=== PATIENT | female | born 1970 | race Caucasian/White ===

== ENCOUNTER 2016-07-24 15:45 | Emergency (ER) | payer MEDICAID ==
--- NOTE | 2016-07-24 15:40 | EDPHY ---
H & P Constitutional: Initial Vital Signs Temperature (C) 36.7 C 07/24/16 15:57 Heart Rate 108 H 07/24/16 15:57 Respiratory Rate 20 07/24/16 15:57 Blood Pressure 141/104 H 07/24/16 15:57 O2 Sat (%) 98 07/24/16 15:57 O2 Delivery Mode Room Air O2 (L/minute) 2 Allergies/Adverse Reactions: Penicillins Allergy (Verified 06/20/13 18:12) promethazine HCl [From Phenergan] Allergy (Verified 06/20/13 18:12) Home Medications: Medication Instructions Recorded Protonix 07/24/16 traMADol 07/24/16 Medical Decision Making ED Course/Re-evaluation: CHIEF COMPLAINT: Abdominal pain, vomiting HISTORY OF PRESENT ILLNESS: The patient is a 46 y/o female, with a history of alcoholic pancreatitis, arriving via EMS from the [facility] complaining of vomiting and diffuse abdominal pain, worse in the epigastrium, worsening over the last week. She reports she has been drinking heavily every day for the last several months, but began intentionally weaning herself down over the last week. Her last drink was a beer yesterday. She has been attempting to find an inpatient detox facility and ultimately drove from [place] today to the [facility] for detox. Upon arrival there, she was shaking, vomiting, and complaining of diffuse abdominal pain. She was not yet admitted to their facility and the [facility] called EMS so she could be cleared at the ED first. EMS administered 200mcg IV Fentanyl and 4mg IV Zofran en route for symptoms. The patient wishes to return to the [facility] after evaluation. REVIEW OF SYSTEMS: A 10 point review of systems was performed and is negative with the exception of the elements mentioned in the history of present illness. PHYSICAL EXAM: HR, BP, O2 Sat, RR. Temp noted General Appearance: Alert, well hydrated, appropriate, and non-toxic appearing. Head: Atraumatic without scalp tenderness or obvious injury Eyes: Pupils equal, round, reactive to light and accommodation, EOMI, no trauma , no injection. Ears: Clear bilaterally, no perforation, normal landmarks Nose: Atraumatic, no rhinorrhea, clear. Throat: There is no erythema or exudates, no lesions, normal tonsils, mucus membranes moist. Neck: Supple, 2+ carotid upstroke, nontender, no lymphadenopathy. Respiratory: No retractions, no distress, no wheezes, and no accessory muscle use. Lungs are clear to auscultation bilaterally. Cardiovascular: Tachycardic regular rate and rhythm, no murmurs, rubs, or gallops. Bilateral carotid, radial, dorsalis pedis, and posterior tibial pulses intact. Good capillary refill all extremities. Gastrointestinal: Abdomen is soft, mild epigastric tenderness, non-distended, no masses, no rebound, no guarding, no peritoneal signs. Musculoskeletal: Normal active ROM of all extremities, atraumatic. Neurological: Alert, appropriate, and interactive. The patient has normal DTRs and non-focal cranial nerves, motor, sensory, and cerebellar exam. Skin: No rashes, good turgor, no nodules on palpation. Past medical history: Pancreatitis, alcoholism Past surgical history: noncontributory Family history: noncontributory Social history: Lives in [place], came to [place] for detox, alcohol abuse and binging behavior DIFFERENTIAL DIAGNOSIS: The differential diagnosis for the patient's abdominal pain and vomiting included but was not limited to alcohol withdrawal, pancreatitis, gastritis, ovarian cyst, pelvic inflammatory disease, ovarian torsion, urinary tract infection, ectopic , cholecystitis, and appendicitis. MEDICAL DECISION MAKING: This is a 46 y/o female with a history of alcohol abuse who is attempting to detox off alcohol for the last week. She presents from the [facility] prior to being admitted to their facility with epigastric abdominal tenderness, shaking, tachycardia, and vomiting. She scores around 12 on the CWA scale. Her symptoms are consistent with alcohol withdrawal. Plan to treat with PRN Ativan and fluids , draw basic labs, then discharge back to the [facility] with Librium at her request. 1620: Hgb 20.4. Patient is likely dehydrated from ongoing vomiting. 2L IV NS administered. Normal lipase. 1637: Patient is medically cleared at this time. She received 1mg IV Ativan, 4mg IV Zofran, 20mg IV Pepcid, and 2L IV NS with improvement in symptoms. She feels improved and is no longer shaking. Plan for discharge to the [facility] with Librium prepack. Patient agrees with the plan. - Data Points Laboratory Results: Laboratory Results 07/24/16 15:50 07/24/16 15:50 07/24/16 15:50 WBC 8.06 10^3/uL (3.80-9.50) RBC 5.71 H 10^6/uL (4.18-5.33) Hgb 20.4 H* g/dL (12.6-16.3) Hct 57.7 H % (38.0-47.0) MCV 101.1 H fL (81.5-99.8) MCH 35.7 H pg (27.9-34.1) MCHC 35.4 g/dL (32.4-36.7) RDW 15.1 % (11.5-15.2) Plt Count 297 10^3/uL (150-400) MPV 9.6 fL (8.7-11.7) Neut % (Auto) 82.0 H % (39.3-74.2) Lymph % (Auto) 8.9 L % (15.0-45.0) [place] % (Auto) 8.2 % (4.5-13.0) Eos % (Auto) 0.0 L % (0.6-7.6) Baso % (Auto) 0.5 % (0.3-1.7) Nucleat RBC Rel Count 0.0 % (0.0-0.2) Absolute Neuts (auto) 6.61 H 10^3/uL (1.70-6.50) Absolute Lymphs (auto) 0.72 L 10^3/uL (1.00-3.00) Absolute Monos (auto) 0.66 10^3/uL (0.30-0.80) Absolute Eos (auto) 0.00 L 10^3/uL (0.03-0.40) Absolute Basos (auto) 0.04 10^3/uL (0.02-0.10) Absolute Nucleated RBC 0.00 10^3/uL (0-0.01) Immature Gran % 0.4 % (0.0-1.1) Immature Gran # 0.03 10^3/uL (0.00-0.10) Sodium 143 mEq/L (134-144) Potassium 4.4 mEq/L (3.5-5.2) Chloride 99 mEq/L (97-110) Carbon Dioxide 23 mEq/l (22-31) Anion Gap 21 H mEq/L (8-16) BUN 5 L mg/dL (7-23) Creatinine 0.6 mg/dL (0.6-1.0) Estimated GFR > 60 Glucose 130 H mg/dL (70-100) Calcium 10.3 mg/dL (8.5-10.4) Total Bilirubin 2.5 H mg/dL (0.1-1.4) Conjugated Bilirubin 0.8 H mg/dL (0.0-0.5) Unconjugated Bilirubin 1.7 H mg/dL (0.0-1.1) AST 92 H IU/L (14-46) ALT 61 H IU/L (9-52) Alkaline Phosphatase 131 H IU/L (38-126) Total Protein 8.1 g/dL (6.3-8.2) Albumin 4.4 g/dL (3.5-5.0) Lipase 128.0 IU/L (23-300) Beta HCG, Qual NEGATIVE Medications Given: Discontinued Medications Chlordiazepoxide (Librium 25 Mg Prepack#6) 1 btl TAKEHOME EDNOW ONE Stop: 07/24/16 16:38 Last Admin: 07/24/16 16:45 Dose: 1 btl Sodium Chloride (Ns) 1,000 mls @ 0 mls/hr IV ONCE ONE PRN Reason: Wide Open Stop: 07/24/16 15:51 Last Admin: 07/24/16 16:15 Dose: 1,000 mls Sodium Chloride (Ns) 1,000 mls @ 0 mls/hr IV ONCE ONE PRN Reason: Wide Open Stop: 07/24/16 15:51 Last Admin: 07/24/16 16:15 Dose: 1,000 mls Famotidine/Sodium Chloride (Pepcid 20 Mg (Premix)) 50 mls @ 200 mls/hr IV EDNOW ONE Stop: 07/24/16 16:04 Last Admin: 07/24/16 16:15 Dose: 50 mls Lorazepam (Ativan Injection) 1 mg IVP EDNOW ONE Stop: 07/24/16 15:53 Last Admin: 07/24/16 16:00 Dose: 1 mg Departure - Departure Disposition: Home, Routine, Self-Care Clinical Impression: Alcohol withdrawal Condition: Good Instructions: Alcohol Withdrawal (ED) Additional Instructions: Go directly to the [facility]. Use Librium as prescribed for alcohol withdrawal symptoms. Referrals: Patient,NotPresent [Primary Care Provider] - As per Instructions [facility] 24 Hours [Outside] - As per Instructions Report Scribed for: Mik Natarajan Report Scribed by: Maribel Manjarrez Date of Report: 07/24/16 Time of Report: 16:00
[2016-07-24] MEDS ORDERED: LORazepam 2 MG/ML INJ ONE (15:49)
[2016-07-24] MEDS ORDERED: NS 1,000 ML IV ONE ×2 (15:50)
[2016-07-24] MEDS ORDERED: FAMOTIDINE 20 MG/NACL 50 ML IV ONE (15:50)
[2016-07-24] MEDS ORDERED: LORazepam 2 MG/ML INJ IVP ONE (15:52)
[2016-07-24 15:59] VITALS: TEMP 98.1
[2016-07-24 16:02] VITALS: O2SAT 100
[2016-07-24 16:06] LABS: % IMMATURE GRANULYOCYTES 0.4 % (0.0-1.1); ABSOLUTE IMMATURE GRANULOCYTES 0.03 10^3/uL (0.00-0.10); ADD DIFF? NO; ADD MORPH? NO; ADD SCAN? NO; ATYPICAL LYMPHOCYTE FLAG 0 (0-99); FRAGMENT RBC FLAG 0 (0-99); HEMATOCRIT 57.7 % (38.0-47.0); LEFT SHIFT FLG 0 (0-99); LIPEMIA HEMOLYSIS FLAG 90 (0-99); MEAN CELL HEMOGLOBIN 35.7 pg (27.9-34.1); MEAN CELL HEMOGLOBIN CONCENTR. 35.4 g/dL (32.4-36.7); MEAN CELL VOLUME 101.1 fL (81.5-99.8); MEAN PLATELET VOLUME 9.6 fL (8.7-11.7); PLATELET CLUMPS FLAG 30 (0-99); PLATELET COUNT 297 10^3/uL (150-400); RED BLOOD CELL COUNT 5.71 10^6/uL (4.18-5.33); RED CELL DISTRIBUTION WIDTH 15.1 % (11.5-15.2)
[2016-07-24 16:14] LABS: HEMOGLOBIN 20.4 g/dL (12.6-16.3)
[2016-07-24 16:30] LABS: ALANINE AMINOTRANSFERASE 61 IU/L (9-52); ALBUMIN 4.4 g/dL (3.5-5.0); ALKALINE PHOSPHATASE 131 IU/L (38-126); ANION GAP 21 mEq/L (8-16); ASPARTATE AMINOTRANSFERASE 92 IU/L (14-46); BILIRUBIN,TOTAL 2.5 mg/dL (0.1-1.4); BILIRUBIN-CONJUGATED 0.8 mg/dL (0.0-0.5); BILIRUBIN-UNCONJUGATED 1.7 mg/dL (0.0-1.1); CALCIUM 10.3 mg/dL (8.5-10.4); CARBON DIOXIDE 23 mEq/l (22-31); CHLORIDE 99 mEq/L (97-110); CREATININE 0.6 mg/dL (0.6-1.0); GLOMERULAR FILTRATION RATE > 60; GLUCOSE 130 mg/dL (70-100); POTASSIUM 4.4 mEq/L (3.5-5.2); SODIUM 143 mEq/L (134-144); TOTAL PROTEIN 8.1 g/dL (6.3-8.2)
[2016-07-24] MEDS ORDERED: CHLORDIAZEPOXIDE 25MG PREPK#6 BTL TAKEHOME ONE (16:37)
[2016-07-24 16:51] VITALS: BP 128/86; PULSE 78; RESP 18
== END 2016-07-24 17:01 | disposition home or self-care (01) ==
LOC: EDUNIT#
DX: F10.239 Alcohol dependence with withdrawal, unspecified (principal)
CPT/HCPCS: 96374

== ENCOUNTER 2016-07-25 12:23 | Emergency (ER) | payer MEDICAID ==
[2016-07-25] MEDS ORDERED: LORazepam 2 MG/ML INJ IVP ONE ×2 (12:49→14:26)
[2016-07-25] MEDS ORDERED: MVI WITH VIT K 10 ML, FOLIC ACID 2.5 MG, THIAMINE HCL 100 MG, MAGNESIUM SULFATE 2 GM in... IV ONE (12:49)
[2016-07-25] MEDS ORDERED: ONDANSETRON 4 MG/2 ML VIAL IVP ONE (12:49)
--- NOTE | 2016-07-25 12:49 | EDPHY ---
H & P Stated Complaint: SEEN IN ED YESTERDAY, WANTS DETOX FROM ALCOHOL AND TRAMODOL - Personal History LMP (Females 10-55): IUD In Place Current Tetanus Diphtheria and Acellular Pertussis (TDAP): Yes Tetanus Vaccine Date: 2015 - Medical/Surgical History Hx Asthma: No Hx Chronic Respiratory Disease: No Hx Diabetes: No Hx Cardiac Disease: No Hx Renal Disease: No Hx Cirrhosis: No Hx Alcoholism: Yes Hx HIV/AIDS: No Hx Splenectomy or Spleen Trauma: No Other PMH: pancreatitis, etoh abuse - Social History Smoking Status: Current every day smoker Time Seen by Provider: 07/25/16 12:44 HPI/ROS: CHIEF COMPLAINT: I'm detoxing, I think I have pancreatitis HISTORY OF PRESENT ILLNESS: 46-year-old female seen emergency department yesterday for complaints of epigastric pain, alcohol withdrawal like symptoms, treated and [facility], returns from the [facility] complaining of continued epigastric pain, nausea, vomiting, alcohol withdrawal symptoms. Denies hallucination. Denies seizure. Denies melena or hematochezia. Denies hematemesis. PRIMARY CARE PROVIDER: REVIEW OF SYSTEMS: A ten point review of systems was performed and is negative with the exception of the items mentioned in the HPI PAST MEDICAL & SURGICAL HISTORY: Pancreatitis. Alcoholism. SOCIAL HISTORY:Last drink of alcohol few days ago PHYSICAL EXAM (Prior to examination, patient consented to physical exam, hands were washed and my usual and customary physical exam procedures followed) 1) GENERAL: Well-developed, well-nourished, alert and oriented. Appears uncomfortable, crying, guarding abdomen 2) HEAD: Normocephalic, atraumatic 3) HEENT: Pupils equal, round, reactive to light bilaterally. Sclera anicteric. Nasopharynx, oropharynx, clear, no lesions. Ears bilaterally with normal tympanic membranes. 4) NECK: Full range of motion, no meningeal signs. 5) LUNGS: Clear auscultation bilaterally, no wheezes, no rhonchi, no retractions. 6) HEART: Regular rate and rhythm, no murmur, no heave, no gallop. 7) ABDOMEN: guarding epigastrium, tender to palpation epigastrium,, negative McBurney's, negative Matthews's, negative Rovsing's, negative peritoneal sign, 8) MUSCULOSKELETAL: Moving all extremities, no focal areas of tenderness, no obvious trauma. No peripheral edema or discoloration. 9) BACK: No CVA tenderness 10) SKIN: No rash, no petechiae. 11) Psychiatric: Patient is oriented X 3, there is no agitation. Answering questions appropriately DIFFERENTIAL DIAGNOSIS: in no particular orderInclude but limited to acute pancreatitis, acute cholecystitis, acute appendicitis, acute alcohol withdrawal. (Maggie Kuhn) Constitutional: Initial Vital Signs Temperature (C) 36.3 C 07/25/16 12:33 Heart Rate 117 H 07/25/16 12:33 Respiratory Rate 20 07/25/16 12:33 Blood Pressure 125/74 H 07/25/16 12:33 O2 Sat (%) 98 07/25/16 12:33 O2 Delivery Mode Room Air Allergies/Adverse Reactions: Penicillins Allergy (Verified 07/25/16 12:36) promethazine HCl [From Phenergan] Allergy (Verified 07/25/16 12:36) Home Medications: Medication Instructions Recorded Protonix 07/24/16 traMADol 07/24/16 Medical Decision Making ED Course/Re-evaluation: 1636: I did go see and evaluate this patient she p. o. challenge and vomited once. It is noted she was given 3 mg IV Ativan multiple rounds of Zofran prior to me seeing her. Unfortunately she did not receive any IV fluids. I have given her 2 L of normal saline at this time and will recheck [place] sure shortly. If she tolerates p. o. I think is reasonable her to [facility]. I did re-evaluate her abdomen her abdomen remained soft specifically is no guarding or peritoneal signs or significant tenderness to epigastric region. Lipase was marginally elevated. No evidence of significant withdrawal at this time she is not tachycardic she denies any significant tremors. 1758: Re-evaluation this time this patient p. o. challenge well she feels comfortable being discharged back to the [facility]. Prescription for Librium, 1 mg Ativan p. o. here and Zofran take-home pack. (Bruce Genao) Re-evaluation with serial exams most recently at 3:20 p.m.. She is sleeping, easily woken. She has been observed tolerating oral intake. Re-examined her abdomen she has no guarding no rebound no focal tenderness. Epigastric pain has resolved. Heart rate is in the low 90s at this time. Discussed case Dr. Bruce Genao in the ER. I think the patient can be discharged back to the [facility]. She is answering questions appropriately. Doubt DTs. Care the patient is turned over to Dr. Bruce Genao at 3:30 p.m. awaiting discharge back to the [facility] (Maggie Kuhn) - Data Points Laboratory Results: Laboratory Results 07/25/16 13:00 07/25/16 13:00 07/25/16 07/25/16 13:05 13:00 WBC 4.50 10^3/uL (3.80-9.50) RBC 5.52 H 10^6/uL (4.18-5.33) Hgb 19.5 H g/dL (12.6-16.3) Hct 56.6 H % (38.0-47.0) MCV 102.5 H fL (81.5-99.8) MCH 35.3 H pg (27.9-34.1) MCHC 34.5 g/dL (32.4-36.7) RDW 14.6 % (11.5-15.2) Plt Count 258 10^3/uL (150-400) MPV 9.5 fL (8.7-11.7) Neut % (Auto) 90.7 H % (39.3-74.2) Lymph % (Auto) 6.9 L % (15.0-45.0) [place] % (Auto) 2.0 L % (4.5-13.0) Eos % (Auto) 0.0 L % (0.6-7.6) Baso % (Auto) 0.2 L % (0.3-1.7) Nucleat RBC Rel Count 0.0 % (0.0-0.2) Absolute Neuts (auto) 4.08 10^3/uL (1.70-6.50) Absolute Lymphs (auto) 0.31 L 10^3/uL (1.00-3.00) Absolute Monos (auto) 0.09 L 10^3/uL (0.30-0.80) Absolute Eos (auto) 0.00 L 10^3/uL (0.03-0.40) Absolute Basos (auto) 0.01 L 10^3/uL (0.02-0.10) Absolute Nucleated RBC 0.00 10^3/uL (0-0.01) Immature Gran % 0.2 % (0.0-1.1) Immature Gran # 0.01 10^3/uL (0.00-0.10) Sodium 137 mEq/L (134-144) Potassium 4.6 mEq/L (3.5-5.2) Chloride 99 mEq/L (97-110) Carbon Dioxide 25 mEq/l (22-31) Anion Gap 13 mEq/L (8-16) BUN 4 L mg/dL (7-23) Creatinine 0.5 L mg/dL (0.6-1.0) Estimated GFR > 60 Glucose 207 H mg/dL (70-100) Calcium 9.6 mg/dL (8.5-10.4) Total Bilirubin 2.2 H mg/dL (0.1-1.4) Conjugated Bilirubin 0.7 H mg/dL (0.0-0.5) Unconjugated Bilirubin 1.5 H mg/dL (0.0-1.1) AST 83 H IU/L (14-46) ALT 57 H IU/L (9-52) Alkaline Phosphatase 106 IU/L (38-126) Total Protein 7.5 g/dL (6.3-8.2) Albumin 3.9 g/dL (3.5-5.0) Lipase 475.0 H IU/L (23-300) Beta HCG, Qual NEGATIVE Specimen Hemolysis 106 Ethyl Alcohol < 10 mg/dL (0-10) Medications Given: Discontinued Medications Chlordiazepoxide (Librium 25 Mg Prepack#6) 1 btl TAKEHOME EDNOW ONE Stop: 07/25/16 15:41 Last Admin: 07/25/16 18:19 Dose: 1 btl Diphenhydramine HCl (Benadryl Injection) 25 mg IVP EDNOW ONE Stop: 07/25/16 16:41 Last Admin: 07/25/16 16:53 Dose: 25 mg Folic Acid (Folic Acid) 1 mg PO EDNOW ONE Stop: 07/25/16 15:25 Last Admin: 07/25/16 15:45 Dose: 1 mg Multivitamins 10 ml/ Folic Acid 2.5 mg/ Thiamine HCl 100 mg/ Magnesium Sulfate 2 gm/Sodium Chloride 1,015.5 mls @ 0 mls/hr IV EDNOW ONE PRN Reason: As Directed Stop: 07/25/16 12:50 Last Admin: 07/25/16 15:46 Dose: Not Given Sodium Chloride (Ns) 2,000 mls @ 0 mls/hr IV ONCE ONE PRN Reason: Wide Open Stop: 07/25/16 15:57 Last Admin: 07/25/16 16:02 Dose: 2,000 mls Ibuprofen (Motrin) 600 mg PO EDNOW ONE Stop: 07/25/16 17:52 Last Admin: 07/25/16 17:58 Dose: 600 mg Lorazepam (Ativan Injection) 2 mg IVP EDNOW ONE Stop: 07/25/16 12:50 Last Admin: 07/25/16 13:08 Dose: 2 mg Lorazepam (Ativan Injection) 1 mg IVP EDNOW ONE Stop: 07/25/16 14:27 Last Admin: 07/25/16 14:43 Dose: 1 mg Lorazepam (Ativan) 1 mg PO EDNOW ONE Stop: 07/25/16 17:52 Last Admin: 07/25/16 17:58 Dose: 1 mg Metoclopramide HCl (Reglan Injection) 10 mg IVP EDNOW ONE Stop: 07/25/16 16:41 Last Admin: 07/25/16 16:53 Dose: 10 mg Multivitamins (Tab-A-Ector) 1 each PO EDNOW ONE Stop: 07/25/16 15:25 Last Admin: 07/25/16 15:46 Dose: 1 each Ondansetron HCl (Zofran) 4 mg IVP EDNOW ONE Stop: 07/25/16 12:50 Last Admin: 07/25/16 13:08 Dose: 4 mg Thiamine HCl (Vitamin B-1) 100 mg PO EDNOW ONE Stop: 07/25/16 15:25 Last Admin: 07/25/16 15:46 Dose: 100 mg Departure - Departure Disposition: Home, Routine, Self-Care Clinical Impression: Alcohol withdrawal Condition: Good Instructions: Alcohol Withdrawal (ED) Referrals: [facility] 24 Hours [Outside] - 1 day without fail
[2016-07-25 13:08] LABS: % IMMATURE GRANULYOCYTES 0.2 % (0.0-1.1); ABSOLUTE IMMATURE GRANULOCYTES 0.01 10^3/uL (0.00-0.10); ADD DIFF? NO; ADD MORPH? NO; ADD SCAN? NO; ATYPICAL LYMPHOCYTE FLAG 0 (0-99); FRAGMENT RBC FLAG 0 (0-99); HEMATOCRIT 56.6 % (38.0-47.0); HEMOGLOBIN 19.5 g/dL (12.6-16.3); LEFT SHIFT FLG 0 (0-99); LIPEMIA HEMOLYSIS FLAG 90 (0-99); MEAN CELL HEMOGLOBIN 35.3 pg (27.9-34.1); MEAN CELL HEMOGLOBIN CONCENTR. 34.5 g/dL (32.4-36.7); MEAN CELL VOLUME 102.5 fL (81.5-99.8); MEAN PLATELET VOLUME 9.5 fL (8.7-11.7); PLATELET CLUMPS FLAG 0 (0-99); PLATELET COUNT 258 10^3/uL (150-400); RED BLOOD CELL COUNT 5.52 10^6/uL (4.18-5.33); RED CELL DISTRIBUTION WIDTH 14.6 % (11.5-15.2)
[2016-07-25 13:24] LABS: ALANINE AMINOTRANSFERASE 57 IU/L (9-52); ALBUMIN 3.9 g/dL (3.5-5.0); ALKALINE PHOSPHATASE 106 IU/L (38-126); ANION GAP 13 mEq/L (8-16); ASPARTATE AMINOTRANSFERASE 83 IU/L (14-46); BILIRUBIN,TOTAL 2.2 mg/dL (0.1-1.4); BILIRUBIN-CONJUGATED 0.7 mg/dL (0.0-0.5); BILIRUBIN-UNCONJUGATED 1.5 mg/dL (0.0-1.1); CALCIUM 9.6 mg/dL (8.5-10.4); CARBON DIOXIDE 25 mEq/l (22-31); CHLORIDE 99 mEq/L (97-110); CREATININE 0.5 mg/dL (0.6-1.0); ETHANOL SERUM < 10 mg/dL (0-10); GLOMERULAR FILTRATION RATE > 60; GLUCOSE 207 mg/dL (70-100); POTASSIUM 4.6 mEq/L (3.5-5.2); SODIUM 137 mEq/L (134-144); SPECIMEN HEMOLYSIS 106; TOTAL PROTEIN 7.5 g/dL (6.3-8.2)
[2016-07-25] MEDS ORDERED: FOLIC ACID 1 MG TAB PO ONE (15:24)
[2016-07-25] MEDS ORDERED: THIAMINE HCL 100 MG TAB PO ONE (15:24)
[2016-07-25] MEDS ORDERED: MULTIVITAMINS 1 EACH TAB PO ONE (15:24)
[2016-07-25] MEDS ORDERED: CHLORDIAZEPOXIDE 25MG PREPK#6 BTL TAKEHOME ONE (15:40)
[2016-07-25] MEDS ORDERED: NS 2,000 ML IV ONE (15:56)
[2016-07-25 16:39] VITALS: RESP 16; TEMP 98.1
[2016-07-25] MEDS ORDERED: METOCLOPRAMIDE 10 MG/2 ML VIAL IVP ONE (16:40)
[2016-07-25] MEDS ORDERED: IBUPROFEN 600 MG TAB PO ONE (17:51)
[2016-07-25] MEDS ORDERED: ONDANSETRON 4MG PREPACK#2 BTL TAKEHOME ONE (17:51)
[2016-07-25] MEDS ORDERED: LORazepam 1 MG TAB PO ONE (17:51)
[2016-07-25 18:49] VITALS: BP 120/90; PULSE 95; O2SAT 97
== END 2016-07-25 18:39 | disposition home or self-care (01) ==
DX: F10.239 Alcohol dependence with withdrawal, unspecified (principal); F17.200 Nicotine dependence, unspecified, uncomplicated
CPT/HCPCS: 96374; G0480; J1200; J2405; J2765; J3411